=== PATIENT | female | born 1990 ===

== ENCOUNTER 2021-09-05 04:35 | Inpatient (IN) | payer OTHER ==
[~2021-09-05] VITALS: Ht 167.6 cm; Wt 100.9 kg
[2021-09-05 05:16] LABS: BASOPHILS ABSOLUTE AUTO 0.04 K/mm3 (0.00-0.23); BASOPHILS PERCENT AUTO 0 % (0-2); EOSINOPHILS ABSOLUTE AUTO 0.33 K/mm3 (0.00-0.68); EOSINOPHILS PERCENT AUTO 2 % (0-6); Hematocrit 35.1 % (33.0-51.0); IMMATURE GRAN ABSOLUTE AUTO 0.09 K/mm3 (0.00-0.10); IMMATURE GRAN PERCENT AUTO 1 % (0-1); LYMPHOCYTES ABSOLUTE AUTO 2.17 K/mm3 (0.84-5.20); LYMPHOCYTES PERCENT AUTO 16 % (21-46); MONOCYTES PERCENT AUTO 7 % (4-13); Mean Corpuscular HGB 29.8 pg (26.0-34.0); Mean Corpuscular HGB Conc 34.2 g/dL (31.5-36.5); Mean Corpuscular Volume 87 fL (80-100); Mean Platelet Volume 10.3 fL (9.1-12.4); NEUTROPHILS ABSOLUTE AUTO 10.35 K/mm3 (1.96-9.15); NEUTROPHILS PERCENT AUTO 75 % (41-73); Platelet Count 259 K/mm3 (150-400); RDW Standard Deviation 40.9 fL (35.1-46.3); Red Blood Cell Count 4.03 M/mm3 (3.80-5.20); White Blood Cell Count 13.88 K/mm3 (4.00-11.30)
[2021-09-05] MEDS ORDERED: ASPI81CH PO (05:16)
[2021-09-05] MEDS ORDERED: PRENATAL TABLE1 EAC9 PO (05:18)
--- NOTE | 2021-09-05 11:31 | NUR ---
UP TO SHOWER. VOIDED. SHIRA WELL.
--- NOTE | 2021-09-05 12:53 | NUR ---
PT C/O CRAMPING PAIN WITH BF. DISCUSSED THIS IS NORMAL AND WILL SUBSIDE AFTER BF. HEATING PAD GIVEN TO ASSIST WITH DISCOMFORT.
--- NOTE | 2021-09-05 18:07 | NUR ---
DISCUSSED WITH PT THE OPTIONS FOR PAIN MANAGEMENT PAIN IS STILL 5/10. PT ALREADY HAS A HEATING PAD. ENCOURAGED PT TO BE UP OOB AND TRY AMBULATING IN THE ROOM OR SITTING IN THE CHAIR SINCE THE BED IS HURTING HER BACK. DISCUSSED USING PRESCRIBED OXICODONE. PT OPTS TO WAIT ON OXICODONE AND WILL TRY MOVING AROUND IN ROOM AND WILL LET RN KNOW IF SHE NEEDS SOMETHING MORE.
[2021-09-06 05:29] LABS: Hematocrit 29.9 % (33.0-51.0); Mean Corpuscular HGB 30.2 pg (26.0-34.0); Mean Corpuscular HGB Conc 33.4 g/dL (31.5-36.5); Mean Corpuscular Volume 90 fL (80-100); Mean Platelet Volume 10.3 fL (9.1-12.4); Platelet Count 200 K/mm3 (150-400); RDW Coefficient Variation 13.2 % (11.7-14.2); RDW Standard Deviation 43.6 fL (35.1-46.3); Red Blood Cell Count 3.31 M/mm3 (3.80-5.20); White Blood Cell Count 11.01 K/mm3 (4.00-11.30)
[2021-09-06] MEDS ORDERED: ROXICODONE5 MG PO (14:52)
== END 2021-09-06 16:20 | disposition home or self-care (01) | DRG 807 ==
LOC: OBS 04:35 → BC 04:51
PROVIDERS: Obstetrics & Gynecology; ADMIT Nurse Practitioner Obstetrics & Gynecology
PROC: 10E0XZZ Delivery of Products of Conception, External Approach (ICD-10-PCS; principal; 2021-09-05)
PROC: 0KQM0ZZ Repair Perineum Muscle, Open Approach (ICD-10-PCS; 2021-09-05)
PROC: 10907ZC Drainage of Amniotic Fluid, Therapeutic from Products of Conception, Via Natural or Artificial Opening (ICD-10-PCS; 2021-09-05)
PROC: 3E0R3BZ Introduction of Anesthetic Agent into Spinal Canal, Percutaneous Approach (ICD-10-PCS; 2021-09-05)
PROC: 00HU33Z Insertion of Infusion Device into Spinal Canal, Percutaneous Approach (ICD-10-PCS; 2021-09-05)
PROC: 3E033VJ Introduction of Other Hormone into Peripheral Vein, Percutaneous Approach (ICD-10-PCS; 2021-09-05)
DX: O80 Encounter for full-term uncomplicated delivery (principal); Z37.0 Single live birth; O99.02 Anemia complicating childbirth; O99.344 Other mental disorders complicating childbirth; F32.A Depression, unspecified; O70.1 Second degree perineal laceration during delivery; F41.9 Anxiety disorder, unspecified; F43.10 Post-traumatic stress disorder, unspecified; Z98.890 Other specified postprocedural states; Z88.8 Allergy status to other drugs, medicaments and biological substances; Z79.82 Long term (current) use of aspirin; Z79.899 Other long term (current) drug therapy; Z3A.36 36 weeks gestation of pregnancy
CPT/HCPCS: 36415; 51702; 85025; 85027; 86850; 86900; 86901; A9270; J0290; J1885; J2210; J2590; J3010; J7120